=== PATIENT | female | born 1955 | race Caucasian/White ===

== ENCOUNTER 2017-06-30 13:51 | Outpatient (CLI) | payer OTHER | END 2017-06-30 13:52 | disposition home or self-care (01) | LOC: BICMAMMO 13:51 | DX: Z12.31 Encounter for screening mammogram for malignant neoplasm of breast (principal); Z85.3 Personal history of malignant neoplasm of breast | CPT/HCPCS: 77063; 77067 ==

== ENCOUNTER 2022-05-17 14:12 | Emergency (ER) | payer OTHER, MEDICARE ==
[2022-05-17] MEDS ORDERED: Ondansetron PF 4 MG/2 ML Vial ONE (14:42)
[2022-05-17] MEDS ORDERED: FENTANYL 50 MCG/ML 1 ML VIAL ONE ×2 (14:46→15:53)
[2022-05-17] MEDS ORDERED: Bupivacaine 0.25% 10 ML VIAL ONE (15:19)
[2022-05-17] MEDS ORDERED: Ondansetron ODT 4 MG TAB ONE (15:53)
[2022-05-17] MEDS ORDERED: HYDROcodone/Acetaminophen 10/325 mg Tablet ONE (18:39)
== END 2022-05-17 20:50 ==
LOC: ERS 14:12
DX: S52.512A Displaced fracture of left radial styloid process, initial encounter for closed fracture (principal); S82.035A Nondisplaced transverse fracture of left patella, initial encounter for closed fracture; W01.198A Fall on same level from slipping, tripping and stumbling with subsequent striking against other object, initial encounter; Z87.891 Personal history of nicotine dependence
CPT/HCPCS: 25560; 70450; 70486; 72125; 73100 ×2; 73564; 96372; 99284; J3010; J2405; Q0162; S0020

== ENCOUNTER 2022-05-22 11:59 | Observation (INO) | payer OTHER, MEDICARE ==
[2022-05-21 11:58] VITALS: BMI 26.6
[2022-05-22] MEDS ORDERED: Bupivacaine PF 0.5% 30 ML VIAL ONE (12:35)
[2022-05-22] MEDS ORDERED: fentaNYL 50 mcg/mL 1 mL Vial ONE (12:35)
[2022-05-22] MEDS ORDERED: Midazolam HCl 2 mg/2 ml Vial ONE (12:35)
[2022-05-22] MEDS ORDERED: Bupivacaine HCl 0.5%/Epinephrine 1:200,000/PF 30 ml Vial ONE (13:05)
[2022-05-22] MEDS ORDERED: Sodium Chloride 0.9% 100 ML ONE (14:08)
[2022-05-22] MEDS ORDERED: CEFAZOLIN 2 GM VIAL ONE (14:08)
[2022-05-22] MEDS ORDERED: ePHEDrine Sulfate 50 MG/10 ML VIAL ONE (14:26)
[2022-05-22] MEDS ORDERED: Dexamethasone 20 MG/5 ML VIAL ONE (14:26)
[2022-05-22] MEDS ORDERED: GLYCOPYRROLATE/PF 0.2 MG/ML VIAL ONE (14:26)
[2022-05-22] MEDS ORDERED: Ondansetron PF 4 MG/2 ML Vial ONE ×2 (14:26→14:36)
[2022-05-22] MEDS ORDERED: PROPOFOL 200 MG/20 ML VIAL ONE (14:26)
[2022-05-22] MEDS ORDERED: Lidocaine 1% PF 5 ML VIAL ONE (14:26)
[2022-05-22] MEDS ORDERED: fentaNYL PF 100 MCG/2 ML SYRINGE ONE (14:36)
[2022-05-22] MEDS ORDERED: Milk Of Magnesia 30 ML UDCUP PO PRN (15:30)
[2022-05-22] MEDS ORDERED: Communication Order-Pharmacy FS SCH (15:30)
[2022-05-22] MEDS ORDERED: traMADol HCl 50 MG TAB PO PRN ×2 (15:30)
[2022-05-22] MEDS ORDERED: Bisacodyl 10 MG SUPP PR PRN (15:30)
[2022-05-22] MEDS ORDERED: Ondansetron PF 4 MG/2 ML Vial IVP PRN (15:30)
[2022-05-22] MEDS ORDERED: Acetaminophen 325 MG TAB PO PRN (15:30)
[2022-05-22] MEDS ORDERED: Promethazine HCl 25 MG/ML VIAL IM PRN (15:30)
[2022-05-22] MEDS ORDERED: Morphine 2 MG/ML VIAL SLOW IVP PRN (15:30)
[2022-05-22] MEDS ORDERED: Acetaminophen 500 MG TAB PO PRN (15:37)
[2022-05-22] MEDS: Aspirin 81 mg Enteric Coated Tablet PO SCH (19:44)
[2022-05-22] MEDS: HYDROcodone/Acetaminophen 5/325 mg Tablet PO PRN ×2 (19:47→23:47)
[2022-05-22] MEDS: CEFAZOLIN 2 GM in Sodium Chloride 0.9% 100 ML IVPB SCH (21:02)
[2022-05-23] MEDS: HYDROcodone/Acetaminophen 5/325 mg Tablet PO PRN ×4 (05:23→17:23)
[2022-05-23] MEDS: CEFAZOLIN 2 GM in Sodium Chloride 0.9% 100 ML IVPB SCH (05:24)
[2022-05-23] MEDS: Aspirin 81 mg Enteric Coated Tablet PO SCH (07:58)
[2022-05-23] MEDS ORDERED: Loratadine 10 MG TAB PO SCH (09:00)
[2022-05-23] MEDS ORDERED: Sertraline 25 MG TAB PO SCH (09:00)
[2022-05-23] MEDS ORDERED: Fluticasone Propionate Nasal Spray 16 gm Bottle NASAL SCH (09:00)
[2022-05-23 18:20] VITALS: BP 134/72; TEMP 98.6
== END 2022-05-23 19:40 ==
LOC: SDC 11:59 → T4-A 17:56
PROVIDERS: ADMIT Orthopaedic Surgery; ATTEND Orthopaedic Surgery
PROC: 0PSH04Z Reposition Right Radius with Internal Fixation Device, Open Approach (ICD-10-PCS; principal; 2022-05-22)
DX: S52.571A Other intraarticular fracture of lower end of right radius, initial encounter for closed fracture (principal); S82.092A Other fracture of left patella, initial encounter for closed fracture; Z85.3 Personal history of malignant neoplasm of breast; Z86.73 Personal history of transient ischemic attack (TIA), and cerebral infarction without residual deficits; Z79.01 Long term (current) use of anticoagulants; Z79.2 Long term (current) use of antibiotics; Z79.899 Other long term (current) drug therapy; Z88.2 Allergy status to sulfonamides; Z88.8 Allergy status to other drugs, medicaments and biological substances; W01.0XXA Fall on same level from slipping, tripping and stumbling without subsequent striking against object, initial encounter
CPT/HCPCS: 25608; 73100; 97116; C1713 ×4; J3010; 96372; 96374; 96376; G0378; J1100; J1650; J2250; J2405; J2704; J3490; S0020

== ENCOUNTER 2023-09-02 21:44 | Inpatient (IN) | payer MEDICARE, OTHER ==
[2023-09-02] MEDS ORDERED: Ondansetron PF 4 MG/2 ML Vial IVP PRN (23:15)
[2023-09-02] MEDS ORDERED: Ondansetron ODT 4 MG TAB SL PRN (23:15)
[2023-09-02] MEDS ORDERED: Morphine 2 MG/ML VIAL SLOW IVP PRN (23:19)
[2023-09-02 23:27] LABS: #Basophils Less than 0.03 10x3/uL (0.0-0.2); %Basophils 0.2 % (0.0-1.0); %Lymphocytes 13.7 % (21.0-51.0); %Monocytes 5.5 % (0.0-10.0); %Neutrophils 79.2 % (42.0-75.0); Hematocrit 39.4 % (36.0-47.0); Hemoglobin 13.4 g/dL (12.0-16.0); Mean Corpuscular Hemoglobin 32.5 pg (27.0-31.0); Mean Corpuscular Volume 95.6 fL (78.0-98.0); Mean Platelet Volume 11.2 fL (7.4-10.4); Platelet Count 238 10x3/uL (130-400); RBC Distribution Width 12.4 % (11.5-14.5); Red Blood Cell (RBC) Count 4.12 mill/uL (4.20-5.40)
[2023-09-02 23:40] LABS: INR-International Normal Ratio 0.8; PTT 33.8 sec (22.9-36.1); Prothrombin Time 11.5 sec (12.0-14.7)
[2023-09-02 23:51] LABS: ALT (SGPT) 26 U/L (8-55); AST (SGOT) 32 U/L (5-34); Albumin 3.8 g/dL (3.4-4.8); Alkaline Phosphatase 98 U/L (40-110); Anion Gap 15 mmol/L (10-20); BUN (Urea Nitrogen) 19 mg/dL (9.8-20.1); Bilirubin, Total 0.2 mg/dL (0.2-1.2); Calc. Creatinine Clearance 0 mL/min (70-130); Calcium 9.8 mg/dL (7.8-10.44); Carbon Dioxide 23 mmol/L (23-31); Chloride 108 mmol/L (98-107); Estimated GFR 89; Globulin 3.5 g/dL (2.4-3.5); Glucose 109 mg/dL (80-115); Magnesium 2.1 mg/dL (1.6-2.6); Potassium 4.2 mmol/L (3.5-5.1); Protein, Total 7.3 g/dL (5.8-8.1); Sodium 142 mmol/L (136-145)
[2023-09-02 23:58] LABS: Troponin I Less than 0.010 ng/mL (< 0.028)
[2023-09-03 01:20] VITALS: BMI 27.5
[2023-09-03 07:44] LABS: #Basophils Less than 0.03 10x3/uL (0.0-0.2); %Basophils 0.3 % (0.0-1.0); %Eosinophils 1.1 % (0.0-10.0); %Lymphocytes 21.5 % (21.0-51.0); %Monocytes 8.4 % (0.0-10.0); %Neutrophils 68.3 % (42.0-75.0); Hematocrit 40.4 % (36.0-47.0); Hemoglobin 13.5 g/dL (12.0-16.0); Mean Corpuscular HGB CONC 33.4 g/dL (32.0-36.0); Mean Corpuscular Hemoglobin 32.2 pg (27.0-31.0); Mean Corpuscular Volume 96.4 fL (78.0-98.0); Platelet Count 215 10x3/uL (130-400); RBC Distribution Width 12.6 % (11.5-14.5); Red Blood Cell (RBC) Count 4.19 mill/uL (4.20-5.40)
[2023-09-03] MEDS: Famotidine 20 MG TAB PO SCH (07:50)
[2023-09-03 08:00] LABS: Anion Gap 14 mmol/L (10-20); BUN (Urea Nitrogen) 14 mg/dL (9.8-20.1); Calc. Creatinine Clearance 88 mL/min (70-130); Calcium 9.5 mg/dL (7.8-10.44); Carbon Dioxide 23 mmol/L (23-31); Chloride 109 mmol/L (98-107); Estimated GFR 95; Glucose 98 mg/dL (80-115); Potassium 4.2 mmol/L (3.5-5.1); Sodium 142 mmol/L (136-145)
[2023-09-03] MEDS ORDERED: Acetaminophen 325 MG TAB PO PRN (16:26)
[2023-09-03] MEDS ORDERED: Acetaminophen/Codeine 30-300mg Tablet PO PRN (16:26)
[2023-09-03] MEDS ORDERED: Morphine 2 MG/ML VIAL SLOW IVP PRN (16:30)
[2023-09-03] MEDS: Acetaminophen 325 MG TAB PO SCH (17:30)
[2023-09-03 17:56] VITALS: TEMP 97.7
[2023-09-04] MEDS ORDERED: Sertraline 100 MG TAB PO SCH (09:00)
== END 2023-09-03 18:40 | disposition home or self-care (01) | DRG 84 ==
LOC: ERS 21:44 → IMCU/EMU 22:58
PROVIDERS: ADMIT Surgery; ATTEND Surgery
DX: S06.6X9A Traumatic subarachnoid hemorrhage with loss of consciousness of unspecified duration, initial encounter (principal); C50.919 Malignant neoplasm of unspecified site of unspecified female breast; F39 Unspecified mood [affective] disorder; Z88.2 Allergy status to sulfonamides; Z88.8 Allergy status to other drugs, medicaments and biological substances; Z79.899 Other long term (current) drug therapy; Z86.73 Personal history of transient ischemic attack (TIA), and cerebral infarction without residual deficits; Z87.891 Personal history of nicotine dependence
CPT/HCPCS: 36415; 70450; 71045; 72125; 80048; 80053; 83735; 84484; 85025; 85610; 85730; 86850; 86900; 86901; 93005; 93880; G0390